=== PATIENT | female | born 1960 | race Caucasian/White ===

== ENCOUNTER 2018-03-07 07:48 | Outpatient (CLI) | payer BC ==
[2018-03-07] MEDS ORDERED: Gadobenate Dimeglumine 529 MG/1 ML (20ML VIAL) ONE (09:00)
--- NOTE | 2018-03-07 12:26 | MRI ---
BRAIN MRI WITH AND WITHOUT CONTRAST: DATE: 03/07/2018. COMPARISON: Brain MRI 08/09/2016. HISTORY: Multiple sclerosis. TECHNIQUE: Multiplanar, multisequence MR imaging of the brain is obtained with and without contrast. FINDINGS: The axial gradient echo imaging demonstrates no evidence for intracranial hemorrhage. The diffusion weighted imaging demonstrates no evidence for acute infarction. On the T2 and FLAIR imaging, there are numerous foci of increased signal intensity within the white m atter including the periventricular, deep, and subcortical white matter of both frontal and parietal regions. In addition, there is a vague area of peripheral increased FLAIR signal within the anterior aspect of the james to the left of midline, stable. When compared to the 08/09/2016 examination, thes e lesions do not appear significantly changed. Some of the lesions demonstrate decreased signal intensity on the precontrast T1 weighted imaging, si milar when compared to the prior exam. No definite evidence for interval development of new white matter lesions. The postcontrast imaging demonstrates no abnormal enhancement within the brain parenchyma to suggest the presence of active demyelination. IMPRESSION: Multiple T2 and FLAIR hyperintense lesions are noted as described above, consistent with the provided history of multiple sclerosis. There has been no appreciable change when compared to the 2017 exami [facility]. No enhancing lesions are seen to suggest the presence of active demyelination. POS: [facility]
--- NOTE | 2018-03-07 12:53 | MRI ---
MRI OF THE CERVICAL SPINE WITH AND WITHOUT CONTRAST: DATE: 03/07/2018. COMPARISON: 08/09/2016. HISTORY: Multiple sclerosis. TECHNIQUE: Multiplanar, multisequence MR imaging of the cervical spine is provided with and without contrast. FINDINGS: The craniocervical junction, atlantoaxial interspace, and cervicothoracic junction demonstrate no acu te findings. No prevertebral soft tissue swelling noted. C2-3: There is disk space narrowing with disk desiccation, disk bulge, and central annular tear with a small associated central disk protrusion. There is no significant central canal or neural foramin al stenosis. C3-4: There is disk space narrowing, disk desiccation, and disk bulge. There is mild associated martin tral canal stenosis. No significant neural foraminal stenosis on either side. C4-5: There is disk space narrowing, disk desiccation, and mild disk bulge with partial effacement o f the ventral thecal sac. No significant central canal or neural foraminal stenosis. C5-6: There is disk space narrowing and disk desiccation with disk bulge and partial effacement of t he ventral thecal sac with mild central canal stenosis. Mild right neural foraminal stenosis on the basis of face and uncovertebral osteophyte formation noted. C7-T1: No significant central canal or neural foraminal stenosis. There is extensive abnormal increased T2 signal identified within the cervical cord. This includes t he posterior aspect of the cervical cord in the right aspect of the cervical cord at the C1-2 level. There is significant right lateral signal abnormality within the cervical cord at the C2-3 level. A long the dorsal aspect of the cervical cord, there is increased signal intensity at C3-4. There is l eft lateral cord signal abnormality at C4 as well. There is right lateral cord signal abnormality at C5 level and C5-6 level. In addition, there is left lateral signal abnormality within the cervical cord at C5-6 and C6-7. When compared to the 08/09/2016 examination, the extensive abnormal T2 hyperin tensity within the cervical cord does not appear significantly changed. Postcontrast imaging is provided which demonstrates no abnormal enhancement within the cervical cord to suggest the presence of active demyelination. IMPRESSION: 1. Scattered areas of T2 hyperintensity without enhancement within the cervical cord as detailed abo ve, consistent with the patient's history of multiple sclerosis. No enhancement seen to suggest the presence of active demyelination. 2. Multilevel degenerative change noted within the cervical spine as detailed above. POS: [facility]
== END 2018-03-07 07:49 | disposition home or self-care (01) ==
LOC: SCSMRI 07:48
PROVIDERS: ATTEND Nurse Practitioner Acute Care
DX: G35 Multiple sclerosis (principal); M47.812 Spondylosis without myelopathy or radiculopathy, cervical region; R93.7 Abnormal findings on diagnostic imaging of other parts of musculoskeletal system; G93.9 Disorder of brain, unspecified
CPT/HCPCS: 70553; 72156; A9579

== ENCOUNTER 2019-03-08 07:37 | Outpatient (CLI) | payer BC ==
--- NOTE | 2019-03-08 11:46 | MRI ---
Exam: Brain MRI with and without contrast HISTORY: Multiple sclerosis. Follow-up exam. COMPARISON: 03/07/2018 FINDINGS: Gradient echo sequence: No hemorrhage Calvarium: Appropriate T1 marrow signal intensity Midline brain parenchyma: Unremarkable Cerebrum:No parenchymal mass, mass effect or midline shift. Brain volume is age-appropriate. Cortical kelly-white matter differentiation is preserved. There are stable white matter hyperintensities on the T2 and FLAIR sequence. There is no associated restricted diffusion or enhancement. There are no n ew lesions. Ventricles: No evidence of hydrocephalus. Sinuses and mastoid air cells: Adequate aeration Diffusion: Central arterial flow is maintained. Absent restricted diffusion. Postcontrast images: No pathologic enhancement of the brain parenchyma. IMPRESSION: Essentially stable T2 and FLAIR white matter hyperintensities, consistent with patient's history of m ultiple sclerosis. No significant interval change. No evidence of restricted diffusion or enhancement to suggest active demyelination.
--- NOTE | 2019-03-08 11:54 | MRI ---
CERVICAL SPINE MRI WITH AND WITHOUT CONTRAST: HISTORY: Multiple sclerosis. COMPARISON: 03/07/2018. TECHNIQUE: Cervical spine MRI is performed with and without intravenous gadolinium administration. Multisequenti al, multiplanar imaging is performed. FINDINGS: Appropriate T1 marrow signal intensity of the cervical vertebrae. Cervical spine vertebral body heigh t is maintained. No fracture. No significant STIR hyperintensity to suggest vertebral body edema or ligamentous injury. Stable straightening of cervical lordosis There are scattered T2 hyperintensities involving the cervical cord, essentially stable in distributi on. These hyperintensities involve the cervical cord at the C2 level, C3 level, C4 level, C6, C7 levels. There is no cord malacia. There is no cord expansion. Postcontrast images do not demonstrate any enhancement to suggest active demyelination. C2-C3: Central disc protrusion. No significant central canal stenosis or significant neural foraminal narrowing. C3-C4: Broad-based disc-osteophyte. Mild central canal stenosis. Bilaterally the neural foramina are patent. C4-C5: Broad-based disc-osteophyte complex with a central protrusion. Mild central canal stenosis. Bi laterally the neural foramina are patent. C5-C6: Severe loss of disc space height. Broad-based disc-osteophyte complex with a right paracentral component. Mild central canal stenosis. Mild to moderate right foraminal narrowing due to uncovertebral hypertrophy. Mild left foraminal narrowing due to uncovertebral hypertrophy. C6-C7: No significant central canal stenosis or significant neural foraminal narrowing. C7-T1: No significant central canal stenosis or significant neural foraminal narrowing. IMPRESSION: 1. Degenerative changes of cervical spine as described above. 2. Multifocal T2 hyperintensities involving the spinal cord, compatible with patient's history of mul tiple sclerosis. Absent enhancement. No evidence of active demyelination. Transcribed Date/Time: 03/08/2019 12:03 PM
--- NOTE | 2019-03-08 11:57 | MRI ---
THORACIC SPINE MRI WITH AND WITHOUT CONTRAST: HISTORY: Multiple sclerosis. COMPARISON: None. TECHNIQUE: MRI thoracic spine is performed with and without intravenous gadolinium administration. Multisequenti al, multiplanar imaging was performed. FINDINGS: Appropriate T1 marrow signal intensity of the thoracic vertebrae. Thoracic spine vertebral body heigh t is maintained. There is no fracture. No significant STIR hyperintensity to suggest vertebral body edema or ligamentous injury. Visualized mediastinal structures, lung parenchyma and solid organs are grossly unremarkable. Throughout the thoracic spine, there is no significant central canal stenosis. At T5-T6: Mild central canal stenosis secondary to disc material. Conus medullaris terminates at the mid L1 level. Throughout the thoracic spine, the neural foramina are patent. The thoracic cord has a normal size and signal intensity with the exception of the distal thoracic co rd, just proximal to the conus medullaris. At this level, there is a focus of T2 hyperintensity. There does not appear to be any associated enhancement of the thoracic cord at this level or througho ut the remainder of the thoracic cord. Abnormal signal intensity in the left aspect of the distal cervical cord is noted. Refer to separate cervical spine MRI report for further detail. IMPRESSION: T2 hyperintensity involving the distal spinal cord which may represent a demyelinating plaque. No vicente dence of associated enhancement. Transcribed Date/Time: 03/08/2019 12:09 PM
== END 2019-03-08 07:38 | disposition home or self-care (01) ==
LOC: SCSMRI 07:37
PROVIDERS: ATTEND Nurse Practitioner Acute Care
DX: G35 Multiple sclerosis (principal); M47.812 Spondylosis without myelopathy or radiculopathy, cervical region
CPT/HCPCS: 70553; 72156; 72157